=== PATIENT | male | born 1965 ===

== ENCOUNTER 2017-09-14 01:03 | Inpatient (IN) | payer OTHER, MEDICARE ==
[~2017-09-14] VITALS: Ht 182.9 cm; Wt 104.5 kg
[2017-09-14] VITALS (8 sets, daily range): BP systolic 96–115; BP diastolic 66–80
[~2017-09-14 01:03] MED LIST: AMITIZA24 MC1 PO; CARISOPRODOL350 M1 PO; CELEBREX200 M1 PO; CRESTOR20 M2 PO; ELETRIPTAN HBR40 MG PO; GABAPENTIN600 M1 PO; GEMFIBROZIL600 M1 PO; LOSARTAN POTAS100 M1 PO; OXYCODONE HCL15 M1 PO; OXYCONTIN15 M1 PO; PREDNISONE5 M1 PO; PROCARDIA XL60 M1 PO; RELISTOR150 MG PO; TOPAMAX100 M1 PO; ZOLPIDEM TARTRA10 M1 PO
[2017-09-14] MEDS ORDERED: NEXIUM20 M1 PO (07:50)
[2017-09-14] MEDS ORDERED: HYDROXYZINE HCL25 M2 PO (07:51)
--- NOTE | 2017-09-14 08:57 | RADIOLOGY REPORT ---
EXAMINATION: XR LUMBAR SPINE CLINICAL INFORMATION: L3-L4, L4-L5, L5-S1 fusion COMPARISON: CT from 08/10/2017 TECHNIQUE: Single lateral intraoperative view of the lumbar spine FINDINGS: There is a radiopaque needle posterior to the S1 level. Multilevel facet arthropathy noted. Grade 1 anterolisthesis of L4 on L5, similar to prior CT. Mild disc space narrowing at that level. IMPRESSION: Intraoperative guidance with needle posterior to the S1 level.
--- NOTE | 2017-09-14 10:10 | RADIOLOGY REPORT ---
EXAMINATION: XR LUMBAR SPINE CLINICAL INFORMATION: Lumbar spinal fusion. COMPARISON: Prior intraoperative crosstable radiograph of lumbar spine from 09/14/2017 TECHNIQUE: A crosstable lateral view of the lumbar spine is submitted. This is image #2. FINDINGS: In this patient undergoing multilevel spinal fusion, cervical instruments are seen at the level of the spinous processes/posterior elements of L3, L4 and L5. Multilevel facet arthropathy and grade 1 anterolisthesis of L4 on L5 and of L5 on S1. IMPRESSION: A second crosstable lateral view of the lumbar spine was obtained during performance of L3-L4, L4-L5 and L5-S1 fusion.
--- NOTE | 2017-09-14 15:05 | Operative Report ---
Operative/Inv Procedure Report Surgery Date: 09/14/17 Name of Procedure: L4 5 and L5-S1, L3 4 laminectomies for resection of synovial cysts. L3 4 bilateral osteotomies. L4 5 bilateral osteotomies. L5-S1 bilateral osteotomies. Complete foraminotomies L3 through S1 bilaterally. L3 4 TLIF. Insertion of L3 4 interbody cage. L4 5 TLIF, insertion of L4 5 interbody titanium cage. L5-S1 TLIF, insertion of L5-S1 stripped garcía titanium interbody cage. L3 4 L4 5 L5-S1 posterior lateral arthrodesis utilizing autologous bone graft and iliac crest graft aspirate. L3 4 L4 5 L5-S1 García titanium segmental instrumentation. Stereotactic. Pre-Operative Diagnosis: Severe degenerative disease spinal stenosis spondylosis L3 through S1. Post-Operative Diagnosis: Same Estimated Blood Loss: 800 cc Surgeon/Web Services Developer: Romario Timmons MD and Blanca Yan MD Anesthesia: general endotracheal tube Operative/Procedure Note Note: Patient was brought to the operating room and after undergoing endotracheal intubation for catheterizations Venodyne's were placed on both lower extremities. The patient was placed prone on an OSI table all bony prominences were well-padded. Back was washed with alcohol and Betadine reprepped again with a ChloraPrep solution draped usual sterile fashion. An incision was made in the L3 vertebra and the S1 in the lithotomy the underlying subcutaneous teeniest tissues. The paraspinal muscles were mobilized out lateral to the level of the transverse process of L3 L4 L5 and the S1. Patient was found to be hypervascular and was quite a bit of hemostasis was required the entire procedure. Working with a bone scalpel the inferior L3 4 lamina were removed and bilateral facetectomies complete osteotomies and foramina as were performed the lamina facet joints completely. Similarly at the L4 5 and the L5-S1 the bone scalpel was similarly used to make complete removal of the posterior elements lamina and facet joints and their associated synovial cysts which were peeled away from the dura and removed without incident. After clearing out the foramina completely of all soft tissue and ligamentous structures and she was turned toward the discectomies. Working an 11 blade the annulus was incised and the disc space at L3-4 was removed combination of straight and curved rongeurs and straight and curved curettes. Cartilaginous endplates removed and the bony endplates were partially decorticated. The bone that had been harvested from the patient's lamina was morcellized and mixed in with iliac crest graft aspirate. The iliac crest graft aspirate was obtained through a separate skin and fascial incision over the right iliac crest. The mix was then packed into the L3 4 interspace. Furthermore titanium cage by [employer] instrumentation was centrally packed with valgus bone graft and tapped across the midline. The L4 5 disc was entered with 11 blade and removed with a combination of straight and curved rongeurs and straight and curved curettes. Cartilaginous endplates were removed and the bony endplates were partially decorticated. Morselized bone was packed into the space of the L4 5. García titanium cage was centrally filled with autologous bone graft and tapped across the midline. The L5-S1 disc space was entered with 11 blade and was removed combination of straight and curved rongeurs and straight and curved curettes. Cartilaginous endplates were removed and the bony endplates were partially decorticated. A titanium cage was centrally packed with autologous bone graft and tapped across the midline as well. This point transverse processes were decorticated posterolaterally bilaterally. Bone graft was packed into the decorticated surfaces from L3 through L4 L5 and the ala of S1. After obtaining the stereotactic coordinates the pedicles were accessed utilizing garcía titanium instrumentation 6.5 mm diameter screws. Screws were placed at L3 L4-L5 and S1 bilaterally. Seizure was performed in its entirety with electro physiologic pharmacy technician per diem in the room the screws were stimulated and found to stimulate above 30 mA. 2 rods were now connected to the polyaxial screws and secured under compression. Copious amounts of bacitracin irrigation were utilized throughout the case. Vancomycin powder was placed into the wound. A drain was placed and removed through separate stab incision superiorly. The paraspinal muscles and fascia were reapproximated utilizing interrupted 0 Vicryls. SuBQ tissues were closed using inverted 3-0 Vicryl's and chelly for the skin. Patient was taken to the recovery room.
--- NOTE | 2017-09-14 15:34 | Operative Report ---
Operative/Inv Procedure Report Surgery Date: 09/14/17 Name of Procedure: 1. L3, L4, L5 pars osteotomy for deformity correction 2. L3 4, L4 5, L5-S1 laminotomy, total facetectomies, far lateral discectomies 3. Resection of left L4 5, L5-S1 synovial cyst 4. L3 4, L4 5, L5-S1 transforaminal lumbar interbody fusion with García tritanium interbody cage, autograft 5. segmental posterior lateral lumbar arthrodesis L3 4, L4 5, L5-S1 with García Duncan pedicle screws and rods, autograft, iliac crest bone marrow aspirate 6. Iliac crest bone marrow aspirate 7. O arm neuro navigation Pre-Operative Diagnosis: L3 4, L4 5, L5-S1 spondylolisthesis, stenosis, degenerative disc disease with intractable lumbar claudication Post-Operative Diagnosis: Same Estimated Blood Loss: 2900cc Surgeon/Curtain Cleaner: Farrah SIMON,Romario Paniagua M.D. Anesthesia: general endotracheal tube Monitors: Neurophysiologic monitoring IV Fluids: 2.3 L crystalloid, 1.3 L Cell Saver Implants: García titanium interbody cages, Duncan pedicle screws and rods Urine Output: 1.2 L via Olivera Drains: Medium Hemovac Specimens: L3 4, L4 5, L5-S1 disc material, left L4 5, L5-S1 synovial cysts Complications: None Condition: Stable Operative Indication: Patient is a 52-year-old gentleman with intractable bilateral lower extremity claudication despite maximal conservative care. Imaging identifies advanced multilevel facet arthrosis, spondylolisthesis, and high-grade stenosis from L3 to the sacrum for now presents for surgical decompression and instrumented stabilization. Dictations, risks, benefits, and nonoperative alternatives were explained to the patient detail. He understood and elected to proceed. A written operative consent was obtained. Operative/Procedure Note Note: Patient was taken the operating room. After appropriate patient identification, neurophysiologic monitoring leads were placed and baseline recordings were obtained. The patient then underwent the smooth induction of general endotracheal anesthesia without incident. Following intubation monitoring was stable. A Olivera catheter was sterilely inserted. DVT prophylaxis was utilized throughout the case. Patient was given 2 g of IV Kefzol Preoperative Prophylaxis. With All Tubes and Lines Secured, the Patient Was Carefully Turned to the Prone Position on the Joseph Frame Taking Care to Ensure That All Pressure Points Were Well-Padded. Monitoring Was Stable Following the Turn.The Low Back Was Widely Prepped and Draped Usual Sterile Fashion Using [place] Iodine Solution. A Vertical Midline Skin Incision Was Marked and Infiltrated with 10 ML of Local Anesthetic. Small gauge spinal needle was placed superficially and a localizing x-ray was obtained to confirm the needle to be at the sacrum. Skin incision was made with a 10 blade knife. Dissection was carried down through subcutaneous tissue with the Bovie to the lumbodorsal fascia. The fascia was incised and a subperiosteal dissection of the lumbar paravertebral muscles was performed exposing the underlying spinous processes lamina and facets from L3 to S1 bilaterally and self-retaining retractors were placed beneath the muscle. A [place] 4 elevator was placed under the presumed L4 lamina and sondra on the rostral pars and an intraoperative lateral lumbar x- rays was obtained to confirm the correct level. With the correct level verified , we then proceeded to expose the transverse processes from L3 to L5 as well as the sacral alar bilaterally and they were decorticated with a high-speed drill. We then focused our attention to the decompression. The facet joints were noted to be markedly hypertrophic particularly at L4 5 and L5-S1. A complete laminectomy from L3 to S1 was completed using a combination of the bone scalpel, small straight and angled curettes and Kerrison rongeurs. Thickened ligamentum flavum was gently elevated and resected allowing excellent decompression of the thecal sac. Synovial cysts from the facets on the left at L4 5 and L5-S1 were carefully resected and passed off as specimen. Bilateral pars osteotomies were then performed at L3, L4, and L5 using combination the bone scalpel and a Kerrison rongeurs and total facetectomies were completed. All bone was saved and passed to the back table for subsequent arthrodesis. Pedicles were skeletonized at L3, L4, L5, and S1 bilaterally and the exiting and traversing roots were widely decompressed on both sides. We then focused our attention to the discectomies. Using a far lateral approach , discectomies were completed at L4 5 and L5-S1 from the patient's left side and from the right at L3 4. The dural sac was gently mobilized to the midline, the underlying disc annulus was coagulated with a bipolar and incised in a rectangular fashion with an 11 blade knife and discectomies were completed with small straight and angled curettes pituitary rongeurs disc space giorgi and rasps until all the cartilaginous endplates were removed at all 3 levels. 10 mL of right iliac crest bone marrow aspirate was then taken via a Jamshidi needle through a separate stab incision at the right iliac crest and added to the morcellated autograft. We next focused our attention to the interbody arthrodesis. Beginning at L5-S1, after appropriate trials, a 10x 28 x 6 mm [place] titanium peek cage was selected. It was filled with morcellated autograft and ICBM aspirate. morcellated autograft which was packed into the anterior interspace. We then tamped the L5-S1 cage into the disc space under direct visualization and countersunk the cage by approximately 2 mm and its final position was noted to be excellent. At L4 5, a 10 x 28 x 6 mm titanium cage was also selected after appropriate trials and packed with morcellated autograft. Morcellated autograft was packed into the anterior disc space and the L4 5 cage was packed with autograft and then gently tamped into the interspace under direct visualization and countersunk by several millimeters and its position also confirmed and noted to be excellent. At L3 4, a 10 x 28 x 6 mm titanium cage was selected and packed with morcellated autograft. autograft were carefully packed into the anterior aspect of the L3 4 disc space followed by the cage was gently tamped into the interspace and countersunk by 2 mm and its final position confirmed and noted to be excellent. With all cages in position, we then proceeded to the posterior lateral arthrodesis. The O arm reference arc was then fixed to the right iliac crest and an AP and lateral x-rays were obtained with the O arm followed by a spin. Reconstructions were completed and confirmed. We then used live navigation to place all of the posterolateral hardware. Prior to placing the pedicle screw instrumentation, all residual bone graft was moistened with iliac crest bone marrow aspirate was packed over the transverse processes from L3 to the sacral alar bilaterally. Entry points for García Duncan pedicle screws were selected using the O arm at the junction of the pars interarticularis transverse process and inferomedial aspect of the rostral facet. All screws were placed by piercing the bone with the drill, traversing the pedicle with a gearshift under the hole with a ball- tipped probe, and screw placed with power. We began at L3. 6.5 x 50 mm screw was placed bilaterally. At L4, 6.5 x 45 mm screws were placed bilaterally, at L5, 6.5 x 40 mm screws bilaterally, at S1, 6.5 x 35 mm screws placed bilaterally. With all screws were in position, they were stimulated with thresholds greater than 30 mA at all locations. With all the screws in position, we then obtained a second spin of the O arm and completed the reconstructions to ensure good hardware positioning. All cages were in excellent position. With all screws in position, we gently lordosed and then top loaded 90 mm titanium rods and locking caps were placed. Screws were then finally tightened using antitorque device. Was copiously irrigated with bacitracin and sterile saline irrigation. Epidural bleeding was controlled using FloSeal, Surgifoam and cottonoid patties and points of muscle bleeding were controlled with the bipolar electrocautery. A medium MARLEE drain was placed into the wound and secured to the skin with a 2-0 nylon suture. 1 g of vancomycin powder was gently used to cover the cut muscle and soft tissue surfaces in the wound and we then began closure. 10 mL of long- acting local anesthetic was placed in the paraspinal muscle. Deep muscle was reapproximated with interrupted 0 Vicryl suture. Subcutaneous tissue was closed in layers with interrupted oh and 2-0 Vicryl suture. The skin was closed with chelly. The wounds were cleaned and dried. Bacitracin and sterile occlusive dressings were placed. The reference arc was removed from the right iliac crest. That wound was irrigated, closed in layers in the subcutaneous tissue with Vicryl suture and chelly in the skin. It was cleaned and dried and a sterile occlusive dressing was placed. At the completion of the case, all sponge needle and injuring counts were correct at the completion of the procedure 3. Neurophysiologic monitoring was stable throughout the case. Patient was returned to the supine position, awakened extubated and taken to PACU in stable condition. He was noted to be moving all four extremities. Findings: Tight stenosis L3 4, L4 5, L5-S1 with advanced multilevel facet arthrosis severe at L4 5 with bilateral joint effusions, synovial cyst left L4 5, L5-S1 Discharge Disposition: PACU
--- NOTE | 2017-09-14 15:48 | Admission Core Measures ---
Acute Coronary Syndrome (CM) ACS Core Measures Acute Coronary Syndrome Diagnosis No Congestive Heart Failure (NEW) CHF Core Measures Congestive Heart Failure Diagnosis No Cerebrovascular Accident CVA Core Measures CVA/TIA Diagnosis No Venous Thromboembolism VTE Core Mick (View Protocol) VTE Risk Factors Surgery No Mechanical VTE Prophylaxis d/t N/A MechProphylax Ordered No VTE Pharm Prophylaxis d/t NA PharmProphylax ordered Problem List As ranked by this Provider includes Assessment & Plan 1. Spondylolisthesis, lumbosacral region HOME MEDS Home Med List Carisoprodol 350 MG TABLET 1 TAB PO 4XDAILY MUSCLE SPASMS (Reported) Celecoxib (Celebrex) 200 MG CAPSULE 1 CAP PO BID PAIN/INFLAMMATORY (Reported) Eletriptan HBr 40 MG TABLET 1 TAB PO BID PRN MIGRAINES (Reported) Esomeprazole Magnesium (Nexium) 20 MG CAPSULE.DR 2 TAB PO DAILY reflux ( Reported) Gabapentin 600 MG TABLET 1 TAB PO BID NERVE PAIN (Reported) Gemfibrozil 600 MG TABLET 1 TAB PO BID CHOLESTEROL (Reported) Hydroxyzine Hydrochloride (Atarax) 25 MG TAB 1 TAB PO DAILY PRN itch ( Reported) Losartan Potassium 100 MG TABLET 1 TAB PO DAILY BP (Reported) Lubiprostone (Amitiza) 24 MCG CAPSULE 1 CAP PO BID PRN CONSTIPATION (Reported ) Methylnaltrexone [place] (Relistor) 150 MG TABLET 1 TAB PO AD PRN CONSTIPATION (Reported) Nifedipine (Procardia XL) 60 MG TAB.ER.24 1 TAB PO BID HEART (Reported) Oxycodone HCl (Oxycontin) 15 MG TAB.ER.12H 1 TAB PO BID PAIN (Reported) Oxycodone HCl 15 MG TABLET 1 TAB PO 4XDAILY PAIN (Reported) Prednisone 5 MG TABLET 1 TAB PO DAILY STEROID (Reported) Rosuvastatin Calcium (Crestor) 20 MG TABLET 1 TAB PO DAILY CHOLESTEROL ( Reported) Topiramate (Topamax) 100 MG TABLET 1 TAB PO BID PRN MIGRAINES (Reported) Zolpidem Tartrate 10 MG TABLET 1 TAB PO QPM SLEEP (Reported)
--- NOTE | 2017-09-14 15:54 | Patient Discharge Instructions ---
Discharge Instructions General Discharge Information You were seen/treated for: Back pain related to spondylolisthesis, stenosis, claudication and degerative disc disease in levels L3-S1 You had these procedures: TLIF L3-S1 Watch for these problems: Increasing pain despite the use of pain medications Increasing redness, warmth or swelling of surgical site Drainage of any type from incision Loss of sensation/weakness to bilateral legs Inability to bear weight on bilateral legs Inability to urinate or move bowels Fever greater than 101.5 Do not soak the wound: Yes No bath, but you may shower: Yes Other wound care: Keep wound clean and dry No ointments or lotions of any type on or near incision. No exceptions. Special Instructions: Dexamethasone/Decadron taper: This medication was started while you were in the hospital. Dr. Yan has recommended a specific taper for you to follow. You will be required to take the remaining doses at home. The instructions are as follows: Each tablet is 1 mg On 09/17/2017, take 3 tablets every 6 hours for two additional doses (after your discharge home from hospital) On 09/18/2017, take 2 tablets every 6 hours x 4 doses On 09/19, take 1 tablet every 6 hours x4 doses On 09/20, take 1 tablet every 12 hours x2 doses After that, you will have completed this taper. Diet Continue normal diet: Yes Recommended Diet: Regular Activity Full Activity/No Limits: No Activity Self Limited: Yes Pounds, do NOT lift more than: 5 Acute Coronary Syndrome Inclusion Criteria At DC or during hospital stay patient has or had the following: ACS DIAGNOSIS No Discharge Core Measures Meds if any: Prescribed or Continued at Discharge Meds if any: NOT Prescribed or Continued at Discharge Congestive Heart Failure Inclusion Criteria At DC or during hospital stay patient has or had the following: CHF DIAGNOSIS No Discharge Core Measures Meds if any: Prescribed or Continued at Discharge Meds if any: NOT Prescribed or Continued at Discharge Cerebrovascular accident Inclusion Criteria At DC or during hospital stay patient has or had the following: CVA/TIA Diagnosis No Discharge Core Measures Meds if any: Prescribed or Continued at Discharge Meds if any: NOT Prescribed or Continued at Discharge Venous thromboembolism Inclusion Criteria VTE Diagnosis No VTE Type NONE VTE Confirmed by (Test) NONE Discharge Core Measures - Per Current guidelines, there needs to be overlap - treatment for the first 5 days of Warfarin therapy. - If discharged on Warfarin prior to 5 days of - overlap therapy, the patient will need to be - assessed for post discharge needs including - *Post discharge parental anticoagulation - *Warfarin and/or parental anticoagulation education - *Follow up date to check INR post discharge At least 5 days overlap therapy as Inpatient No Meds if any: Prescribed or Continued at Discharge Note: Overlap Therapy is Warfarin and Anticoagulant Meds if any: NOT Prescribed or Continued at Discharge
--- NOTE | 2017-09-14 15:59 | Surgical Discharge Summary ---
Visit Information Visit Dates Admission Date: 09/14/17 Discharge Date: 09/17/2017 History of Present Illness Chief Complaint: Back pain related to L3-S1 spondylolisthesis, stenosis, degenerative disc disease and claudication. Medical History Isolation History: Standard Surgical History Pertinent Surgical History: non-contributory Psychosocial History What is Your Primary Language? Algerian Review of Systems: See H&P Hospital Course Course Attending Physician: Farrah SIMON,Blanca Berumen Primary Care Physician: Cristofer SIMON,[facility] Course: Romario was admitted to the hospital on 09/14/2017 following a TLIF at levels L3-S1. He tolerated the procedure well and was transferred to a general surgical floor. His diet was advanced and tolerated. He voided spontaneously. He was evaluated and treated by physical therapy. At the time of hospital discharge, his vital signs were stable and within normal limits, his neurovascular status was intact, and his pain was controlled with oral pain medication. He was deemed appropriate for discharge. Allergies: Coded Allergies: STATINS (Severe, THROAT SWELLS 09/14/17) lisinopril (Severe, throat swells, uvulitis 09/14/17) venom-honey bee (Severe, ANAPHYLAXIS 09/14/17) Disposition Summary Disposition Principal Diagnosis: L3-S1 spondylolistheisis, stenosis, degenerative disc disease, and claudication Additional Diagnosis: None Discharge Disposition: home health services Discharge Instructions General Discharge Information Code Status: Full Code Patient's Diet: Regular, advance as tolerated Patient's Activity: As tolerated, no lifting greater than 5 pounds, brace when out of bed. Follow-Up Instructions/Appts: Follow up with Dr. Yan in 2 weeks from date of surgery Medications at Discharge Discharge Medications: Stop taking the following medications: Oxycodone HCl (Oxycodone HCl) 15 MG TABLET ORAL 4XDAILY Celecoxib (Celebrex) 200 MG CAPSULE ORAL TWICE DAILY Prednisone (Prednisone) 5 MG TABLET ORAL DAILY Continue taking these medications: Oxycodone HCl (Oxycontin) 15 MG TAB.ER.12H 1 Tablet ORAL TWICE DAILY Carisoprodol (Carisoprodol) 350 MG TABLET 1 Tablet ORAL 4XDAILY Nifedipine (Procardia XL) 60 MG TAB.ER.24 1 Tablet ORAL TWICE DAILY Losartan Potassium (Losartan Potassium) 100 MG TABLET 1 Tablet ORAL DAILY Gabapentin (Gabapentin) 600 MG TABLET 1 Tablet ORAL TWICE DAILY Gemfibrozil (Gemfibrozil) 600 MG TABLET 1 Tablet ORAL TWICE DAILY Zolpidem Tartrate (Zolpidem Tartrate) 10 MG TABLET 1 Tablet ORAL Every night Lubiprostone (Amitiza) 24 MCG CAPSULE 1 Capsule ORAL TWICE DAILY as needed for CONSTIPATION Methylnaltrexone [place] (Relistor) 150 MG TABLET 1 Tablet ORAL As Directed as needed for CONSTIPATION Rosuvastatin Calcium (Crestor) 20 MG TABLET 1 Tablet ORAL DAILY Topiramate (Topamax) 100 MG TABLET 1 Tablet ORAL TWICE DAILY as needed for MIGRAINES Eletriptan HBr (Eletriptan HBr) 40 MG TABLET 1 Tablet ORAL TWICE DAILY as needed for MIGRAINES Esomeprazole Magnesium (Nexium) 20 MG CAPSULE.DR 2 Tablet ORAL DAILY Hydroxyzine Hydrochloride (Atarax) 25 MG TAB 1 Tablet ORAL DAILY as needed for itch Start taking the following new medications: Hydromorphone HCl (Dilaudid) 2 MG TABLET 1-2 Tablet ORAL EVERY 4-6 HOURS NEEDED as needed for PAIN Qty = 36 No Refills Dexamethasone (Dexamethasone) 1 MG TABLET 1 Tablet ORAL As Directed Qty = 20 No Refills Instructions: 3 tabs every 6 hrs x2 add'l doses 09/17 2 tabs every 6 hrs 09/18 1 tab every 6 hrs 09/19 1 tab every 12 hrs 09/20
--- NOTE | 2017-09-14 18:34 | PN- Neurosurgical ---
Subjective Subjective: POSTOP CHECK Patient reports postop pain and decreased range of motion bending his left knee. He denies numbness or tingling. He is tolerating a reg diet without nausea or vomitig. He offers no other complaints. Objective Vital Signs and I&Os Vital Signs Date Time Temp Pulse Resp B/P B/P Pulse O2 O2 Flow FiO2 Mean Ox Delivery Rate 09/14 1700 99 Nasal 3.0L Cannula 09/14 1700 98.4 94 16 115/80 99 Nasal 3.0L Cannula Physical Exam: Gen - resting comfortably eating dinner in nad Cardiac - S1S2 Lungs - CTAB Abd - soft, nontender Ext - moves all extremities, sensory intact, decreased rom with left knee extension, strength, LUE 5/5, RUE 5/5, RLE 5/5, alps in place, no edema or calf tenderness Back - dressing with scant drainage in inferior aspect and hv with sanguineous drainage Current Medications: Current Medications Sig/Alex Start time Last Medication Dose Route Stop Time Status Admin Acetaminophen 1,000 MG Q8P PRN 09/14 1730 AC 09/14 IV 09/15 1716 1801 Albumin Human 25 GM ONCE ONE 09/14 1415 DC IV 09/14 1416 Cefazolin Sodium 2 GM IQ8 09/14 1600 AC N/A 1 UNIT IV 09/18 1559 Dexamethasone 1 MG Q12H 09/19 1800 AC PO Dexamethasone 1 MG Q6 09/18 1800 AC PO Dexamethasone 2 MG Q6 09/17 1800 AC PO Dexamethasone 3 MG Q6 09/16 1800 AC PO Dexamethasone 4 MG Q6 09/15 1800 AC PO Dexamethasone 6 MG Q6 09/14 1800 AC PO Dextrose/Sodium 1,000 ML .[id number] 09/14 1730 AC 09/14 Chloride IV 1806 Fentanyl Citrate 500 MCG .STK-MED ONE 09/14 0710 DC IM 09/14 0711 Gabapentin 600 MG BID 09/14 2100 AC PO Gemfibrozil 600 MG BID 09/14 2100 AC PO Heparin Sodium 5,000 UNIT Q8 09/15 0600 AC (Porcine) SC Hydromorphone HCl 50 MG Q24H PRN 09/14 1730 AC Sodium Chloride 45 ML IV Hydromorphone HCl 50 MG Q24H PRN 09/14 1545 DC Sodium Chloride 45 ML IV Hydromorphone HCl 2 MG .STK-MED ONE 09/14 07 DC IM 09/14 07 Losartan Potassium 100 MG DAILY 09/15 0900 AC PO Lubiprostone 24 MCG BID 09/14 2100 AC PO Midazolam HCl 2 MG .STK-MED ONE 09/14 07 DC IM 09/14 0711 Nifedipine 60 MG BID 09/14 2100 AC PO Omeprazole 40 MG BID 09/14 2100 AC PO Ondansetron HCl 4 MG Q6P PRN 09/14 1730 AC IV Promethazine HCl 12.5 MG Q6P PRN 09/14 1730 AC IV 09/21 1544 Remifentanil 5 MG .STK-MED ONE 09/14 07 DC IV 09/14 07 Topiramate 100 MG BID PRN 09/14 1530 AC PO Assessment/Plan Assessment/Plan 52 F POD s/p L3-S1 TLIF due to L3-S1 spondylolisthesis, stenosis, degenerative disc disease and intractable lumbar claudication Reg diet, 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
[2017-09-14 20:58] LABS: ABSOLUTE BASOPHIL COUNT 0 /CUMM (0.0-0.2); ABSOLUTE EOSINOPHIL COUNT 0 /CUMM (0.0-0.7); ABSOLUTE GRANULOCYTE CT 11.5 /CUMM (1.4-6.5); ABSOLUTE LYMPH COUNT 0.8 /CUMM (1.2-3.4); ABSOLUTE MONOCYTE COUNT 0.7 /CUMM (0.10-0.60); BASOPHIL % 0 % (0.0-2.0); EOSINOPHIL % 0 % (0-5); HEMATOCRIT 36.5 % (42-52); MEAN CORPUSCULAR HGB 29.4 PG (27.0-31.0); MEAN PLATELET VOLUME 8.4 FL (7.4-10.4); PLATELET COUNT 144 /CUMM (130-400); RBC DISTRIBUTION WIDTH 15.5 % (11.5-14.5)
[2017-09-14 21:07] LABS: GRANULOCYTE % 88.5 % (42.2-75.2)
--- NOTE | 2017-09-14 23:41 | RADIOLOGY REPORT ---
EXAMINATION: XR LUMBOSACRAL SPINE, O-arm imaging CLINICAL INFORMATION: Status post fusion L3-S1 COMPARISON: Lumbar spine 09/14/2017 TECHNIQUE: O-imaging used for fusion of lumbar spine. Exposure time: 11.58 seconds. DLP: 810.45 FINDINGS: Axial images obtained showing placement of transpedicular screws and bilateral laminectomy and bone graft through the lower lumbar spine L3-S1. Disc spaces are also placed. IMPRESSION: Status post fusion L3-S1 with bilateral laminectomy.
[2017-09-15] VITALS (11 sets, daily range): BP systolic 90–132; BP diastolic 56–80
--- NOTE | 2017-09-15 08:08 | PN- Neurosurgical ---
Subjective Subjective: Doing well. Reports mod abd distension and subjective weakness left proximal leg. Objective Vital Signs and I&Os Vital Signs Date Time Temp Pulse Resp B/P B/P Pulse O2 O2 Flow FiO2 Mean Ox Delivery Rate 09/15 0743 98.4 92 18 122/70 09/15 0600 98.4 94 20 120/70 09/15 0600 98.4 94 20 120/70 95 Nasal 2.0L Cannula 09/15 0400 97.9 86 20 130/80 09/15 0400 97.9 86 20 130/80 95 Room Air 09/15 0210 99.2 94 20 116/70 95 Nasal 2.0L Cannula 09/15 0200 99.2 94 20 116/70 09/15 0019 98.5 90 20 126/80 96 Nasal 2.0L Cannula 09/15 0000 98.5 90 20 126/80 09/15 0000 96 Nasal 2.0L Cannula 09/14 2313 99.1 93 17 110/66 98 Nasal 2.0L Cannula 09/14 2251 98.1 96 17 100/72 96 Nasal 2.0L Cannula 09/14 2200 98.1 96 17 100/72 09/14 2049 Nasal 2.0L Cannula 09/14 2043 99 96/70 09/14 2000 98.5 99 18 96/70 09/14 1915 98.5 99 18 96/70 98 Nasal 2.0L Cannula 09/14 1900 98.5 99 18 96/70 09/14 1720 98.4 94 18 115/80 09/14 1700 99 Nasal 3.0L Cannula 09/14 1700 98.4 94 16 115/80 99 Nasal 3.0L Cannula Intake & Output 09/15 1600 09/15 0800 09/15 0000 09/14 1600 09/14 0800 09/14 0000 Intake Total 600 1545 Output Total 550 315 Balance 50 1230 Intake, IV 600 945 Intake, Oral 600 Number 0 Bowel Movements Output, 200 Drainage Output, Urine 350 315 Patient 104.525 kg Weight Weight Bed scale Measurement Method Physical Exam: AF, VSS tachy since OR incision with min serosanguinous drainage, flat neuro exam with min weakness, pain related, left iliopsoas, normal power elsewhere, sensory intact bilat LE darius clears abd mod distended, NT to palpation, passing small amt flatus per pt using IS to 3L on [employer] Current Medications: Current Medications Sig/Alex Start time Last Medication Dose Route Stop Time Status Admin Acetaminophen 650 MG Q4P PRN 09/15 0730 AC PO Acetaminophen 1,000 MG Q8P PRN 09/14 1730 DC 09/14 IV 09/15 1716 1801 Albumin Human 25 GM ONCE ONE 09/14 1415 DC IV 09/14 1416 Cefazolin Sodium 2 GM IQ8 09/14 1600 AC 09/15 N/A 1 UNIT IV 09/18 1559 0735 Dexamethasone 1 MG Q12H 09/19 1800 AC PO Dexamethasone 1 MG Q6 09/18 1800 AC PO Dexamethasone 2 MG Q6 09/17 1800 AC PO Dexamethasone 3 MG Q6 09/16 1800 AC PO Dexamethasone 4 MG Q6 09/15 1800 AC PO Dexamethasone 6 MG Q6 09/14 1800 AC 09/15 PO 0516 Dextrose/Sodium 1,000 ML .[id number] 09/14 1730 DC 09/15 Chloride IV 0154 Docusate Sodium 100 MG BID 09/15 09 AC PO Gabapentin 600 MG BID 09/14 2100 AC 09/14 PO 2042 Gemfibrozil 600 MG BID 09/14 2100 AC 09/14 PO 2042 Heparin Sodium 5,000 UNIT Q8 09/15 0600 AC 09/15 (Porcine) SC 0516 Hydromorphone HCl 2 MG Q4P PRN 09/15 0730 AC PO Hydromorphone HCl 4 MG Q4P PRN 09/15 0730 AC PO Hydromorphone HCl 50 MG Q24H PRN 09/14 1730 DC Sodium Chloride 45 ML IV Hydromorphone HCl 2 MG .STK-MED ONE 09/14 1552 DC IM 09/14 1553 Hydromorphone HCl 50 MG Q24H PRN 09/14 1545 DC Sodium Chloride 45 ML IV Ketorolac 15 MG Q8P PRN 09/15 1600 AC Tromethamine IV Ketorolac 30 MG 0730 09/15 0730 DC 09/15 Tromethamine IV 09/15 0731 0735 Losartan Potassium 100 MG DAILY 09/15 09 AC PO Lubiprostone 24 MCG BID 09/14 2100 AC 09/14 PO 2041 Morphine Sulfate 4 MG Q2P PRN 09/15 0730 AC IV Nifedipine 60 MG BID 09/14 2100 AC PO Omeprazole 40 MG BID 09/14 2100 AC 09/14 PO 2041 Ondansetron HCl 4 MG Q6P PRN 09/14 1730 AC IV Promethazine HCl 12.5 MG Q6P PRN 09/14 1730 AC IV 09/21 1544 Remifentanil 2 MG .STK-MED ONE 09/14 1315 DC IV 09/14 1316 Sodium Chloride 500 ML BOLUS ONE 09/14 1945 DC 09/14 IV 09/15 2043 195 Topiramate 100 MG BID PRN 09/14 1530 AC PO Results Last 48 Hours of Labs: Laboratory Tests 09/1543 2025 Chemistry Sodium Pending Potassium Pending Chloride Pending Carbon Dioxide Pending Anion Gap Pending BUN Pending Creatinine Pending BUN/Creatinine Ratio Pending Hematology CBC w Diff Pending NO MAN DIFF REQ WBC (4.8 - 10.8 /CUMM) Pending 13.0 H RBC (4.70 - 6.10 /CUMM) Pending 4.10 L Hgb (14.0 - 18.0 G/DL) Pending 12.1 L Hct (42 - 52 %) Pending 36.5 L MCV (80.0 - 94.0 FL) Pending 89.0 MCH (27.0 - 31.0 PG) Pending 29.4 MCHC (33.0 - 37.0 G/DL) Pending 33.0 RDW (11.5 - 14.5 %) Pending 15.5 H Plt Count (130 - 400 /CUMM) Pending 144 MPV (7.4 - 10.4 FL) Pending 8.4 Gran % (42.2 - 75.2 %) 88.5 H Lymphocytes % (20.5 - 51.1 %) 6.3 L Monocytes % (1.7 - 9.3 %) 5.2 Eosinophils % (0 - 5 %) 0 Basophils % (0.0 - 2.0 %) 0 Absolute Granulocytes (1.4 - 6.5 /CUMM) 11.5 H Absolute Lymphocytes (1.2 - 3.4 /CUMM) 0.8 L Absolute Monocytes (0.10 - 0.60 /CUMM) 0.7 H Absolute Eosinophils (0.0 - 0.7 /CUMM) 0 Absolute Basophils (0.0 - 0.2 /CUMM) 0 Assessment/Plan Assessment/Plan Pt POD1 s/p L3/4, L4/5, L5/S1 TLIF and doing well. Min weakness in left leg seems mostly related to pain but will monitor during the day today. Otherwise neuro intact. Plan: -dc [employer]- oral or iv dilaudid prn -OOB with PT, brace -cont HV, cont abx -dc simental, ISC prn -bowel regimen, slow advance po pending resolution of abd distension -toradol prn today -decadron taper given prior chronic steroid use -HLIV when taking po -check labs this am Core Measures Venous Thromboembolism VTE Risk Factors Surgery No Mechanical VTE Prophylaxis d/t N/A MechProphylax Ordered No VTE Pharm Prophylaxis d/t NA PharmProphylax ordered Attending MD Review Statement Attending Statement Attending MD Statement: examined this patient, discuss w/resident/PA/[employer] ANALY[employer], discussed w/nursing
[2017-09-15 08:16] LABS: ABSOLUTE BASOPHIL COUNT 0 /CUMM (0.0-0.2); ABSOLUTE EOSINOPHIL COUNT 0 /CUMM (0.0-0.7); ABSOLUTE GRANULOCYTE CT 14.2 /CUMM (1.4-6.5); ABSOLUTE LYMPH COUNT 0.7 /CUMM (1.2-3.4); ABSOLUTE MONOCYTE COUNT 0.3 /CUMM (0.10-0.60); BASOPHIL % 0 % (0.0-2.0); EOSINOPHIL % 0 % (0-5); HEMATOCRIT 34.3 % (42-52); MEAN CORPUSCULAR HGB 29.4 PG (27.0-31.0); MEAN CORPUSCULAR HGB CONC 32.9 G/DL (33.0-37.0); MEAN CORPUSCULAR VOLUME 89.2 FL (80.0-94.0); MEAN PLATELET VOLUME 9.3 FL (7.4-10.4); RED BLOOD CELL CT 3.85 /CUMM (4.70-6.10); WHITE BLOOD CELL COUNT 15.2 /CUMM (4.8-10.8)
[2017-09-15 09:19] LABS: GRANULOCYTE % 93.6 % (42.2-75.2); PLATELET COUNT 143 /CUMM (130-400)
[2017-09-16] VITALS (7 sets, daily range): BP systolic 118–130; BP diastolic 61–80
--- NOTE | 2017-09-16 07:39 | PN- Neurosurgical ---
Subjective Subjective: Pt doing well. Pain reasonably controlled and reports abdominal distension to be improved. No new issues. Objective Vital Signs and I&Os Vital Signs Date Time Temp Pulse Resp B/P B/P Pulse O2 O2 Flow FiO2 Mean Ox Delivery Rate 09/16 0404 98.4 78 20 118/70 94 Room Air 09/16 0000 98.0 84 20 120/80 98 Room Air 09/15 2105 90/58 09/15 2030 98.9 86 17 90/58 94 Room Air 09/15 1620 98.6 88 17 96/56 97 Room Air 09/15 1158 98.4 88 20 132/72 97 Room Air 09/15 0836 92 122/78 09/15 0833 92 122/78 09/15 0815 98.7 92 20 122/78 97 Room Air 09/15 0800 95 Nasal 2.0L Cannula 09/15 0743 98.4 92 18 122/70 Intake & Output 09/16 0800 09/16 0000 09/15 1600 09/15 0800 09/15 0000 09/14 1600 Intake Total 650 8990 507 6185 Output Total 9529 597 1826 550 315 Balance -1200 500 -684 94 7766 Intake, IV 50 600 945 Intake, Oral 600 1000 600 Number 0 Bowel Movements Output, 175 150 225 200 Drainage Output, Urine 1025 1350 350 315 Patient 104.525 kg Weight Weight Bed scale Measurement Method Physical Exam: AF, VSS awake and alert, oriented and conversive neuro exam is intact bilat LE to motor and sensory voiding on own, darius po well using IS to over 3L abd NT, min distended incision is c,d,flat no active drainage HV with 175cc over night serosanguinous ambulatory around unit yest Current Medications: Current Medications Sig/Alex Start time Last Medication Dose Route Stop Time Status Admin Acetaminophen 650 MG Q4P PRN 09/15 0730 AC 09/15 PO 2117 Carisoprodol 350 MG 4 TIMES/DAY PRN 09/15 1015 AC PO Cefazolin Sodium 2 GM IQ8 09/14 1600 AC 09/16 N/A 1 UNIT IV 09/18 1559 0719 Dexamethasone 1 MG Q12H 09/19 1800 AC PO 09/20 0601 Dexamethasone 1 MG Q6 09/18 1800 AC PO 09/19 1201 Dexamethasone 2 MG Q6 09/17 1800 AC PO 09/18 1201 Dexamethasone 3 MG Q6 09/16 1800 AC PO 09/17 1201 Dexamethasone 4 MG Q6 09/15 1800 AC 09/16 PO 09/16 1201 0627 Dexamethasone 6 MG Q6 09/14 1800 DC 09/15 PO 09/15 1543 1224 Docusate Sodium 100 MG BID 09/15 0900 AC 09/15 PO 2101 Gabapentin 600 MG BID 09/14 2100 AC 09/15 PO 210 Gemfibrozil 600 MG BID 09/14 2100 AC 09/14 PO 204 Heparin Sodium 5,000 UNIT Q8 09/15 0600 AC 09/16 (Porcine) SC 0626 Hydromorphone HCl 2 MG Q4P PRN 09/15 0730 AC PO Hydromorphone HCl 4 MG Q4P PRN 09/15 0730 AC 09/16 PO 0635 Hydroxyzine HCl 25 MG TIDPRN PRN 09/15 1015 AC PO Ketorolac 15 MG Q8P PRN 09/15 1600 AC 09/15 Tromethamine IV 1657 Losartan Potassium 100 MG DAILY 09/15 09 AC 09/15 PO 0833 Lubiprostone 24 MCG BID 09/14 2100 AC 09/15 PO 2103 Morphine Sulfate 4 MG Q2P PRN 09/15 0730 AC 09/15 IV 1224 Nifedipine 60 MG BID 09/14 2100 AC 09/15 PO 0836 Omeprazole 40 MG BID 09/14 2100 AC 09/15 PO 2101 Ondansetron HCl 4 MG Q6P PRN 09/14 1730 AC IV Oxycodone HCl 15 MG Q12 09/15 1015 AC 09/15 PO 1029 Patient Medication 1 ED ONE ONE 09/15 1530 RI Teaching ED 09/15 1531 Promethazine HCl 12.5 MG Q6P PRN 09/14 1730 AC IV 09/21 1544 Topiramate 100 MG BID PRN 09/14 1530 AC PO Zolpidem Tartrate 5 MG AT BEDTIME PRN 09/15 2030 AC 09/15 PO 2120 Results Last 48 Hours of Labs: Laboratory Tests 09/1543 2025 Chemistry Sodium (137 - 145 mmol/L) 136 L Potassium (3.5 - 5.1 mmol/L) 4.5 Chloride (98 - 107 mmol/L) 105 Carbon Dioxide (22 - 30 mmol/L) 22 Anion Gap (5 - 16) 9 BUN (9 - 20 mg/dL) 15 Creatinine (0.7 - 1.2 mg/dL) 1.0 Estimated GFR (>60 ml/min) > 60 BUN/Creatinine Ratio (7 - 25 %) 15.0 Hematology CBC w Diff NO MAN DIFF REQ NO MAN DIFF REQ WBC (4.8 - 10.8 /CUMM) 15.2 H 13.0 H RBC (4.70 - 6.10 /CUMM) 3.85 L 4.10 L Hgb (14.0 - 18.0 G/DL) 11.3 L 12.1 L Hct (42 - 52 %) 34.3 L 36.5 L MCV (80.0 - 94.0 FL) 89.2 89.0 MCH (27.0 - 31.0 PG) 29.4 29.4 MCHC (33.0 - 37.0 G/DL) 32.9 L 33.0 RDW (11.5 - 14.5 %) 15.0 H 15.5 H Plt Count (130 - 400 /CUMM) 143 144 MPV (7.4 - 10.4 FL) 9.3 8.4 Gran % (42.2 - 75.2 %) 93.6 H 88.5 H Lymphocytes % (20.5 - 51.1 %) 4.7 L 6.3 L Monocytes % (1.7 - 9.3 %) 1.7 5.2 Eosinophils % (0 - 5 %) 0 0 Basophils % (0.0 - 2.0 %) 0 0 Absolute Granulocytes (1.4 - 6.5 /CUMM) 14.2 H 11.5 H Absolute Lymphocytes (1.2 - 3.4 /CUMM) 0.7 L 0.8 L Absolute Monocytes (0.10 - 0.60 /CUMM) 0.3 0.7 H Absolute Eosinophils (0.0 - 0.7 /CUMM) 0 0 Absolute Basophils (0.0 - 0.2 /CUMM) 0 0 Assessment/Plan Assessment/Plan Pt POD2 s/p L3/4, L4/5, L5/S1 TLIF and doing well. Neuro intact. Plan: -dc toradol given high drain output, cont sq hep for DVT prophylaxis -cont to mobilize -cont abx until drain out, cont HV until less than 50-60cc per shift -dulcolax suppository today for BM -valium, po dilaudid prn pain control -cont steroid taper, GI prophylaxis Core Measures Venous Thromboembolism VTE Risk Factors Surgery No Mechanical VTE Prophylaxis d/t N/A MechProphylax Ordered No VTE Pharm Prophylaxis d/t NA PharmProphylax ordered Attending MD Review Statement Attending Statement Attending MD Statement: examined this patient, discuss w/resident/PA/[employer] [place], discussed w/nursing
[2017-09-16] MEDS ORDERED: DILAUDID2 M1 PO (19:24)
[2017-09-16] MEDS ORDERED: DEXAMETHASONE1 M1 PO (19:29)
[2017-09-17 02:41] VITALS: BP 110/70
[2017-09-17 07:13] VITALS: BP 110/64
--- NOTE | 2017-09-17 07:47 | PN- Neurosurgical ---
Subjective Subjective: Pt doing well. No complaints this am. Reports preop leg pain resolved. Incisional LBP improving. Objective Vital Signs and I&Os Vital Signs Date Time Temp Pulse Resp B/P B/P Pulse O2 O2 Flow FiO2 Mean Ox Delivery Rate 09/17 0713 98.3 87 19 110/64 95 09/17 0241 98.4 97 19 110/70 95 09/16 2230 98.5 98 19 120/68 93 Room Air 09/16 1942 130/64 09/16 1806 98.1 100 18 130/64 98 Room Air 09/16 1800 98.1 100 18 130/64 98 Room Air 09/16 1424 96.7 96 20 118/61 99 Room Air 09/16 0830 97.2 91 20 126/80 99 Room Air 09/16 0800 Room Air 09/16 0745 118/76 Intake & Output 09/17 0800 09/17 0000 09/16 1600 09/16 0800 09/16 0000 09/15 1600 Intake Total 530 480 792 755 3456 Output Total 148 064 2262 1717 646 2082 Balance -270 55 -270 -1200 500 -575 Intake, IV 50 80 50 Intake, Oral 480 480 063 928 7451 Number 1 Bowel Movements Output, 100 75 50 175 150 225 Drainage Output, Urine 529 135 9699 1025 1350 Physical Exam: AF, VSS incision c,d,i flat HV with 100cc last shift, 75 prior serosanguinous normal neuro exam bilat LE ambulating, did stairs yest darius po well abd NT, ND this am Current Medications: Current Medications Sig/Alex Start time Last Medication Dose Route Stop Time Status Admin Acetaminophen 650 MG Q4P PRN 09/15 0730 AC 09/15 PO 2117 Bisacodyl 10 MG ONCE ONE 09/16 0930 DC 09/16 WI 09/16 0931 0938 Carisoprodol 350 MG 4 TIMES/DAY PRN 09/15 1015 AC PO Cefazolin Sodium 2 GM IQ8 09/14 1600 AC 09/16 N/A 1 UNIT IV 09/18 1559 2337 Dexamethasone 1 MG Q12H 09/19 1800 AC PO 09/20 0601 Dexamethasone 1 MG Q6 09/18 1800 AC PO 09/19 1201 Dexamethasone 2 MG Q6 09/17 1800 AC PO 09/18 1201 Dexamethasone 3 MG Q6 09/16 1800 AC 09/17 PO 09/17 1201 0530 Dexamethasone 4 MG Q6 09/15 1800 DC 09/16 PO 09/16 1201 1115 Docusate Sodium 100 MG BID 09/15 0900 AC 09/16 PO 1942 Gabapentin 600 MG BID 09/14 2100 AC 09/16 PO 1942 Gemfibrozil 600 MG BID 09/14 2100 AC 09/16 PO 1942 Heparin Sodium 5,000 UNIT Q8 09/15 0600 AC 09/17 (Porcine) SC 0531 Hydromorphone HCl 2 MG Q4P PRN 09/15 0730 AC PO Hydromorphone HCl 4 MG Q4P PRN 09/15 0730 AC 09/17 PO 0531 Hydroxyzine HCl 25 MG TIDPRN PRN 09/15 1015 AC PO Ketorolac 15 MG Q8P PRN 09/15 1600 DC 09/15 Tromethamine IV 1657 Losartan Potassium 100 MG DAILY 09/15 0900 AC 09/16 PO 0745 Lubiprostone 24 MCG BID 09/14 2100 AC 09/16 PO 194 Morphine Sulfate 4 MG Q2P PRN 09/15 0730 AC 09/16 IV 1302 Nifedipine 60 MG BID 09/14 2100 AC 09/16 PO 1942 Omeprazole 40 MG BID 09/14 2100 AC 09/16 PO 194 Ondansetron HCl 4 MG Q6P PRN 09/14 1730 AC IV Oxycodone HCl 15 MG Q12 09/15 1015 AC 09/16 PO 2049 Promethazine HCl 12.5 MG Q6P PRN 09/14 1730 AC IV 09/21 1544 Topiramate 100 MG BID PRN 09/14 1530 AC PO Zolpidem Tartrate 5 MG AT BEDTIME PRN 09/15 2030 AC 09/15 PO 2120 Assessment/Plan Assessment/Plan Pt POD3 s/p L3/4, L4/5, L5/S1 TLIF and doing well. Neurologically stable. Plan: -dc HV, abx this am -dc home later this am -fu with me 2 wks for chelly, wound check -dc instructions discussed in detail with pt -no driving until fu Core Measures Venous Thromboembolism VTE Risk Factors Surgery No Mechanical VTE Prophylaxis d/t N/A MechProphylax Ordered No VTE Pharm Prophylaxis d/t NA PharmProphylax ordered Attending MD Review Statement Attending Statement Attending MD Statement: examined this patient, discuss w/resident/PA/[employer] MIG [employer]EL[employer], discussed w/nursing
[2017-09-17 08:35] VITALS: BP 110/64
== END 2017-09-17 11:54 | DRG 455 ==
LOC: 2NB 01:03 → SDA 01:03 → ENRESERV 15:46 → ENTRNSPT 16:52 → EDTRNSPT 16:56 → EDTRNSPTSTS 16:56 → 2NB 17:05 → CMPTRNSPT 17:14 → ENPENDDIS 09-17 10:00 → ENTRNSPT 09-17 11:54 → 2NB 09-17 11:54 → EDTRNSPTSTS 09-17 11:58 → EDTRNSPT 09-17 11:58 → CMPTRNSPT 09-17 12:11
PROVIDERS: Nurse Practitioner; Physician Assistant
PROC: 0QS004Z Reposition Lumbar Vertebra with Internal Fixation Device, Open Approach (ICD-10-PCS; principal; 2017-09-14)
PROC: 0SG1071 Fusion of 2 or more Lumbar Vertebral Joints with Autologous Tissue Substitute, Posterior Approach, Posterior Column, Open Approach (ICD-10-PCS; principal; 2017-09-14)
PROC: 0QB23ZZ Excision of Right Pelvic Bone, Percutaneous Approach (ICD-10-PCS; principal; 2017-09-14)
PROC: 0QB00ZZ Excision of Lumbar Vertebra, Open Approach (ICD-10-PCS; principal; 2017-09-14)
PROC: 0SG30AJ Fusion of Lumbosacral Joint with Interbody Fusion Device, Posterior Approach, Anterior Column, Open Approach (ICD-10-PCS; principal; 2017-09-14)
DX: M48.062 Spinal stenosis, lumbar region with neurogenic claudication (principal); I10 Essential (primary) hypertension; Z88.8 Allergy status to other drugs, medicaments and biological substances
CPT/HCPCS: 2NBP; 36415; 71046; 72020; 72100; 82436; 87086; 97110-GO; 97116-GO; C9290; J0131; J0690; J1170; J1644; J1885; J2550; J3370; J3490; J7040; J7042; P9047